=== PATIENT | male | born 2005 | race Caucasian/White ===

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

== ENCOUNTER 2025-02-19 23:45 | Emergency (ER) | payer MEDICAID, SELFPAY ==
--- NOTE | ~2025-02-19 | XR_ITS ---
XR chest 1V portable Ordering provider: Sakshi Soler MD History: 20 years Male with . Anxiety, CHEST PAIN . Comparison: None. FINDINGS: MEDIASTINUM: The cardiac silhouette is not enlarged. LUNGS: No infiltrates, effusions or pneumothorax. OTHER: No free air under the diaphragm. Mild dextroscoliosis. IMPRESSION: No acute cardiopulmonary pathology. Reviewed, dictated and finalized at location A.
[2025-02-19 23:46] VITALS: BP 130/75; PULSE 80; RESP 21; TEMP 36.3; O2SAT 95
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
--- OUTSIDE RECORDS SUMMARY | 2025-02-19 23:46 | XMS_ITS | Referral Summary ---
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
--- NOTE | 2025-02-19 23:47 | ECG_ITS ---
Test Date: 2025-02-19 23:51:17 Measurements Intervals [place] Rate: 102 P: 0 [place]: 0 QRS: 81 QRSD: 96 T: 78 QT: 318 QTc: 414 Interpretive Statements SINUS TACHYCARDIA VOLTAGE CRITERIA FOR LVH [MEETS CRITERIA IN ONE OF: R(aVL), S(V1), R(V5), R(V5/V6)+S(V1)] No previous ECG available for comparison Electronically Signed On 02-20-2025 10:47:23 CDT by Nas Vincent M.D.
[2025-02-20] MEDS: LORazepam (*CRX) 1 MG TABLET PO (00:16)
[2025-02-20 00:17] VITALS: BP 131/76; PULSE 96; RESP 16; O2SAT 97
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
--- NOTE | 2025-02-20 00:36 | ED.CHESTPAIN ---
HPI - Chest Pain General Chief Complaint: Psychiatric Symptoms <Zena Godwin PA-C - Last Filed: 02/20/25 03:01> Stated Complaint: chest pain <Zena Godwin PA-C - Last Filed: 02/20/25 03:01> Time Seen by Provider: 02/20/25 00:15 <Zena Godwin PA-C - Last Filed: 02/20/25 03:01> History of Present Illness HPI narrative: 20-year-old male presents via EMS from home with father and sister at bedside for a panic attack that started 30 minutes prior to arrival. Patient states he was lying in bed when he had acute onset chest pain, shortness of breath, left carpal pedal spasm, tingling in extremities. He states that he is under lot of stress recently and has thoughts of suicide with plans to cut his wrist. States tonight he was lying but he was thinking about cutting his wrists with his knife and hoping he would “bleed out”. He denies HI, hallucinations, drug use. Endorses occasional alcohol use. Denies history of admission to psychiatric hospital or suicide attempt. Patient states for the past several months he has been dealing with an old family member along with “random” people stalking him and cyberbullying him. States these people tell him they are going to come to his house and kill him. He states he has reported this several times to PD and PD reportedly gave these people “warnings , however they continue to harass him. He denies access to firearms but does have a knife set. <Zena Godwin PA-C - Last Filed: 02/20/25 03:01> Related Data Allergies/Adverse Reactions: Allergies Allergy/AdvReac Type Severity Reaction Status Date / Time Penicillins Allergy Severe Swelling Verified 02/19/25 23:46 <Zena Godwin PA-C - Last Filed: 02/20/25 03:01> Review of Systems Review of Systems: All systems reviewed & are unremarkable except as noted in HPI and below <Zena Godwin PA-C - Last Filed: 02/20/25 03:01> [facility] Social History Social History: Social History Substance use type: marijuana <Zena Godwin PA-C - Last Filed: 02/20/25 03:01> Exam Narrative: GENERAL: Well-appearing, well-nourished, and in no acute distress. HEAD: Normocephalic, atraumatic. EYES: EOMI. ENT: Nares clear, no rhinorrhea or epistaxis. Mucous membranes moist. NECK: Supple. CHEST: Clear to auscultation. No respiratory distress. HEART: Regular rate and rhythm. No murmur heard. Normal peripheral pulses. ABDOMEN: Soft, nontender, nondistended, normal active bowel sounds. EXTREMITIES: Of carpopedal spasm SKIN: Warm, dry, no rash. NEURO: No focal deficits. Alert and oriented x3 PSYCH: Anxious appearing, tearful. Not responding to internal stimuli. Admits to SI with plan. Denies HI. <Zena Godwin PA-C - Last Filed: 02/20/25 03:01> Course Course Emergency Course: Patient signed out to me. It was reported that he had initially presented with concern for a panic attack and then while here had expressed suicidal ideation in various forms. Psych/Crisis team/[facility] was evaluating patient. They spent extensive time with the patient and ultimately felt that his expression of suicidal ideation was situational and patient had already addressed that he was going to be going to the police with this concern at later today. He has numerous resources in terms of family support that he identified, both here and available to him. They ultimately felt like he could be discharged with safety planning and the performed this together and he was able to identify plan for what he would do if he experienced these feelings again. They have provided him with resources and plan on following up, calling him tomorrow. Patient otherwise stable for discharge and advised to return to the emergency department as needed. <Karyna Long MD - Last Filed: 02/20/25 08:45> Vital Signs Vital signs: Vital Signs Temperature 97.4 F L 02/19/25 23:46 Pulse Rate 80 02/19/25 23:46 Respiratory Rate 21 H 02/19/25 23:46 Blood Pressure 130/75 02/19/25 23:46 Pulse Oximetry 95 02/19/25 23:46 Oxygen Delivery Room Air 02/19/25 23:46 Temperature 97.4 F L 02/19/25 23:46 Pulse Rate 96 02/20/25 08:00 Respiratory Rate 18 02/20/25 08:00 Blood Pressure 129/85 02/20/25 08:00 Pulse Oximetry 99 02/20/25 08:00 Oxygen Delivery Room Air 02/20/25 01:00 <Zena Godwin PA-C - Last Filed: 02/20/25 03:01> Vital Signs Temperature 97.4 F L 02/19/25 23:46 Pulse Rate 80 02/19/25 23:46 Respiratory Rate 21 H 02/19/25 23:46 Blood Pressure 130/75 02/19/25 23:46 Pulse Oximetry 95 02/19/25 23:46 Oxygen Delivery Room Air 02/19/25 23:46 Temperature 97.4 F L 02/19/25 23:46 Pulse Rate 96 02/20/25 08:00 Respiratory Rate 18 02/20/25 08:00 Blood Pressure 129/85 02/20/25 08:00 Pulse Oximetry 99 02/20/25 08:00 Oxygen Delivery Room Air 02/20/25 01:00 <Sakshi Soler MD - Last Filed: 02/20/25 06:34> Vital Signs Temperature 97.4 F L 02/19/25 23:46 Pulse Rate 80 02/19/25 23:46 Respiratory Rate 21 H 02/19/25 23:46 Blood Pressure 130/75 02/19/25 23:46 Pulse Oximetry 95 02/19/25 23:46 Oxygen Delivery Room Air 02/19/25 23:46 Temperature 97.4 F L 02/19/25 23:46 Pulse Rate 96 02/20/25 08:00 Respiratory Rate 18 02/20/25 08:00 Blood Pressure 129/85 02/20/25 08:00 Pulse Oximetry 99 02/20/25 08:00 Oxygen Delivery Room Air 02/20/25 01:00 <Karyna Long MD - Last Filed: 02/20/25 08:45> MDM - Chest Pain MDM Narrative Medical decision making narrative: 20-year-old male presents to the ED via EMS from home for a panic attack that started 30 minutes prior to arrival. Patient endorsing chest pain, shortness of breath, anxiety, left carpopedal spasm, paresthesias. He is endorsing SI with a plan to cut his wrists and “bleed out”. See HPI for further history. Vitals stable. Patient is anxious appearing and tearful and does have left carpopedal spasm on exam. Will obtain chest x-ray, EKG and psychiatric workup with plans to consult crisis. Pending workup and consult crisis at time of sign-out to Dr. Soler. <Zena Godwin PA-C - Last Filed: 02/20/25 03:01> 20-year-old male presents to the ED via EMS from home for a panic attack that started 30 minutes prior to arrival. Patient endorsing chest pain, shortness of breath, anxiety, left carpopedal spasm, paresthesias. He is endorsing SI with a plan to cut his wrists and “bleed out”. See HPI for further history. Vitals stable. Patient is anxious appearing and tearful and does have left carpopedal spasm on exam. Will obtain chest x-ray, EKG and psychiatric workup with plans to consult crisis. Chest x-ray on my independent evaluation does not show any obvious consolidation, cardiomegaly, pneumothorax. EKG on my independent interpretation shows sinus arrhythmia rate 102, normal VA, QRS, QTC, axis, no ST elevations depressions or signs of acute ischemia or arrhythmia. Patient medically cleared for psychiatric evaluation, [facility] will be here to evaluate patient. Sign-out to coming ER physician pending disposition. <Sakshi Soler MD - Last Filed: 02/20/25 06:34> Lab Data Result diagrams: 02/20/25 03:14 02/20/25 03:14 <Zena Godwin PA-C - Last Filed: 02/20/25 03:01> Labs: Lab Results 02/20/25 02/20/25 02/20/25 Range/Units 03:14 03:15 03:17 WBC 8.1 (4.5-10.0) K/mm3 RBC 5.15 (4.6-6.20) M/mm3 Hgb 14.8 (14.0-18.0) g/dL Hct 44.2 (42.0-52.0) % MCV 85.8 (80-100) fl MCH 28.7 (26-34) pg MCHC 33.5 (32-36) g/dl RDW 12.2 (11.5-14.5) % Plt Count 266 (150-375) k/mm3 MPV 8.7 (7.4-10.4) fl Immature Gran % (Auto) 0.1 (0-0.5) % Neut % (Auto) 52.5 (45.5-73.1) % Lymph % (Auto) 34.2 (18.3-44.2) % [place] % (Auto) 8.4 (2.6-8.5) % Eos % (Auto) 4.3 (0-4.4) % Baso % (Auto) 0.5 (0.2-1.2) % Lymph # (Auto) 2.77 (0.9-3.2) K/mm3 [place] # (Auto) 0.7 H (0.1-0.6) K/mm3 Eos # (Auto) 0.4 H (0-0.3) K/mm3 Baso # (Auto) 0.0 (0.0-0.1) K/mm3 Abs Immat Gran (auto) 0.01 (0.00-0.031) K/mm3 Absolute Neuts (auto) 4.3 (1.3-6.7) K/mm3 Absolute Nucleated RBC 0.000 (0.0-0.012) K/mm3 Nucleated RBC % 0.0 (0.0-0.2) % Sodium 138 (137-145) mmol/L Potassium 3.8 (3.4-5.0) mmol/L Chloride 105 (98-107) mmol/L Carbon Dioxide 23 (22-30) mmol/L Anion Gap 10 (4-12) mmol/L BUN 18 (9-20) mg/dL Creatinine 0.82 (0.7-1.3) mg/dL Estim Creat Clear Calc 113 ml/min Estimated GFR > 60 (59 - ) Glucose 90 (65-110) mg/dL Calcium 9.3 (8.4-10.2) mg/dL Total Bilirubin 0.4 (0.2-1.3) mg/dL AST 25 (17-59) U/L ALT 21 (6-50) U/L Alkaline Phosphatase 71 (38-126) U/L Total Protein 8.0 (6.3-8.2) g/dL Albumin 4.7 (3.5-5.1) g/dL TSH 6.370 H (0.465-4.680) uIU/mL Urine Color Yellow (Yellow) Urine Appearance Clear (Clear) Urine pH 6.0 (5.0-9.0) Ur Specific [employer] Mdl 1.035 (1.001-1.035) Urine Protein Trace (Negative) mg/dL Urine Glucose (UA) Negative (Negative) mg/dL Urine Ketones Trace H (Negative) mg/dL Ur Blood (Man) Negative (Negative) Urine Nitrate Negative (Negative) Urine Bilirubin Negative (Negative) Urine Urobilinogen 1.0 (<2.0) mg/dL Leukocyte Esterase Rfl Negative (Negative) FLO/UL Urine RBC 3-5 H (0-2) /hpf Urine WBC 0-5 (0-3) /hpf Ur Squamous Epith Cells None seen (Few) /hpf Urine Bacteria None seen /hpf Urine Casts 0-2 Salicylates 2.2 (2-20) mg/dL Urine Opiates Screen Negative (Negative) Urine Methadone Screen Negative (Negative) Acetaminophen < 10 L (10-30) ug/mL Ur Barbiturates Screen Negative (Negative) Ur Phencyclidine Scrn Negative (Negative) Ur Amphetamine Screen Negative (Negative) U Benzodiazepines Scrn Negative (Negative) Urine Cocaine Screen Negative (Negative) U Cannabinoids Screen Negative (Negative) Ethyl Alcohol < 10 (<10) mg/dL Influenza A (RT-PCR) Negative (Negative) Influenza B (RT-PCR) Negative (Negative) RSV (RT-PCR) Negative (Negative) SARS-CoV-2 RNA (RT-PCR) Negative (Negative) <Zena Godwin PA-C - Last Filed: 02/20/25 03:01> Lab Results 02/20/25 02/20/25 02/20/25 Range/Units 03:14 03:15 03:17 WBC 8.1 (4.5-10.0) K/mm3 RBC 5.15 (4.6-6.20) M/mm3 Hgb 14.8 (14.0-18.0) g/dL Hct 44.2 (42.0-52.0) % MCV 85.8 (80-100) fl MCH 28.7 (26-34) pg MCHC 33.5 (32-36) g/dl RDW 12.2 (11.5-14.5) % Plt Count 266 (150-375) k/mm3 MPV 8.7 (7.4-10.4) fl Immature Gran % (Auto) 0.1 (0-0.5) % Neut % (Auto) 52.5 (45.5-73.1) % Lymph % (Auto) 34.2 (18.3-44.2) % [place] % (Auto) 8.4 (2.6-8.5) % Eos % (Auto) 4.3 (0-4.4) % Baso % (Auto) 0.5 (0.2-1.2) % Lymph # (Auto) 2.77 (0.9-3.2) K/mm3 [place] # (Auto) 0.7 H (0.1-0.6) K/mm3 Eos # (Auto) 0.4 H (0-0.3) K/mm3 Baso # (Auto) 0.0 (0.0-0.1) K/mm3 Abs Immat Gran (auto) 0.01 (0.00-0.031) K/mm3 Absolute Neuts (auto) 4.3 (1.3-6.7) K/mm3 Absolute Nucleated RBC 0.000 (0.0-0.012) K/mm3 Nucleated RBC % 0.0 (0.0-0.2) % Sodium 138 (137-145) mmol/L Potassium 3.8 (3.4-5.0) mmol/L Chloride 105 (98-107) mmol/L Carbon Dioxide 23 (22-30) mmol/L Anion Gap 10 (4-12) mmol/L BUN 18 (9-20) mg/dL Creatinine 0.82 (0.7-1.3) mg/dL Estim Creat Clear Calc 113 ml/min Estimated GFR > 60 (59 - ) Glucose 90 (65-110) mg/dL Calcium 9.3 (8.4-10.2) mg/dL Total Bilirubin 0.4 (0.2-1.3) mg/dL AST 25 (17-59) U/L ALT 21 (6-50) U/L Alkaline Phosphatase 71 (38-126) U/L Total Protein 8.0 (6.3-8.2) g/dL Albumin 4.7 (3.5-5.1) g/dL TSH 6.370 H (0.465-4.680) uIU/mL Urine Color Yellow (Yellow) Urine Appearance Clear (Clear) Urine pH 6.0 (5.0-9.0) Ur Specific [employer] Mdl 1.035 (1.001-1.035) Urine Protein Trace (Negative) mg/dL Urine Glucose (UA) Negative (Negative) mg/dL Urine Ketones Trace H (Negative) mg/dL Ur Blood (Man) Negative (Negative) Urine Nitrate Negative (Negative) Urine Bilirubin Negative (Negative) Urine Urobilinogen 1.0 (<2.0) mg/dL Leukocyte Esterase Rfl Negative (Negative) FLO/UL Urine RBC 3-5 H (0-2) /hpf Urine WBC 0-5 (0-3) /hpf Ur Squamous Epith Cells None seen (Few) /hpf Urine Bacteria None seen /hpf Urine Casts 0-2 Salicylates 2.2 (2-20) mg/dL Urine Opiates Screen Negative (Negative) Urine Methadone Screen Negative (Negative) Acetaminophen < 10 L (10-30) ug/mL Ur Barbiturates Screen Negative (Negative) Ur Phencyclidine Scrn Negative (Negative) Ur Amphetamine Screen Negative (Negative) U Benzodiazepines Scrn Negative (Negative) Urine Cocaine Screen Negative (Negative) U Cannabinoids Screen Negative (Negative) Ethyl Alcohol < 10 (<10) mg/dL Influenza A (RT-PCR) Negative (Negative) Influenza B (RT-PCR) Negative (Negative) RSV (RT-PCR) Negative (Negative) SARS-CoV-2 RNA (RT-PCR) Negative (Negative) <Sakshi Soler MD - Last Filed: 02/20/25 06:34> Lab Results 02/20/25 02/20/25 02/20/25 Range/Units 03:14 03:15 03:17 WBC 8.1 (4.5-10.0) K/mm3 RBC 5.15 (4.6-6.20) M/mm3 Hgb 14.8 (14.0-18.0) g/dL Hct 44.2 (42.0-52.0) % MCV 85.8 (80-100) fl MCH 28.7 (26-34) pg MCHC 33.5 (32-36) g/dl RDW 12.2 (11.5-14.5) % Plt Count 266 (150-375) k/mm3 MPV 8.7 (7.4-10.4) fl Immature Gran % (Auto) 0.1 (0-0.5) % Neut % (Auto) 52.5 (45.5-73.1) % Lymph % (Auto) 34.2 (18.3-44.2) % [place] % (Auto) 8.4 (2.6-8.5) % Eos % (Auto) 4.3 (0-4.4) % Baso % (Auto) 0.5 (0.2-1.2) % Lymph # (Auto) 2.77 (0.9-3.2) K/mm3 [place] # (Auto) 0.7 H (0.1-0.6) K/mm3 Eos # (Auto) 0.4 H (0-0.3) K/mm3 Baso # (Auto) 0.0 (0.0-0.1) K/mm3 Abs Immat Gran (auto) 0.01 (0.00-0.031) K/mm3 Absolute Neuts (auto) 4.3 (1.3-6.7) K/mm3 Absolute Nucleated RBC 0.000 (0.0-0.012) K/mm3 Nucleated RBC % 0.0 (0.0-0.2) % Sodium 138 (137-145) mmol/L Potassium 3.8 (3.4-5.0) mmol/L Chloride 105 (98-107) mmol/L Carbon Dioxide 23 (22-30) mmol/L Anion Gap 10 (4-12) mmol/L BUN 18 (9-20) mg/dL Creatinine 0.82 (0.7-1.3) mg/dL Estim Creat Clear Calc 113 ml/min Estimated GFR > 60 (59 - ) Glucose 90 (65-110) mg/dL Calcium 9.3 (8.4-10.2) mg/dL Total Bilirubin 0.4 (0.2-1.3) mg/dL AST 25 (17-59) U/L ALT 21 (6-50) U/L Alkaline Phosphatase 71 (38-126) U/L Total Protein 8.0 (6.3-8.2) g/dL Albumin 4.7 (3.5-5.1) g/dL TSH 6.370 H (0.465-4.680) uIU/mL Urine Color Yellow (Yellow) Urine Appearance Clear (Clear) Urine pH 6.0 (5.0-9.0) Ur Specific [employer] Mdl 1.035 (1.001-1.035) Urine Protein Trace (Negative) mg/dL Urine Glucose (UA) Negative (Negative) mg/dL Urine Ketones Trace H (Negative) mg/dL Ur Blood (Man) Negative (Negative) Urine Nitrate Negative (Negative) Urine Bilirubin Negative (Negative) Urine Urobilinogen 1.0 (<2.0) mg/dL Leukocyte Esterase Rfl Negative (Negative) FLO/UL Urine RBC 3-5 H (0-2) /hpf Urine WBC 0-5 (0-3) /hpf Ur Squamous Epith Cells None seen (Few) /hpf Urine Bacteria None seen /hpf Urine Casts 0-2 Salicylates 2.2 (2-20) mg/dL Urine Opiates Screen Negative (Negative) Urine Methadone Screen Negative (Negative) Acetaminophen < 10 L (10-30) ug/mL Ur Barbiturates Screen Negative (Negative) Ur Phencyclidine Scrn Negative (Negative) Ur Amphetamine Screen Negative (Negative) U Benzodiazepines Scrn Negative (Negative) Urine Cocaine Screen Negative (Negative) U Cannabinoids Screen Negative (Negative) Ethyl Alcohol < 10 (<10) mg/dL Influenza A (RT-PCR) Negative (Negative) Influenza B (RT-PCR) Negative (Negative) RSV (RT-PCR) Negative (Negative) SARS-CoV-2 RNA (RT-PCR) Negative (Negative) <Karyna Long MD - Last Filed: 02/20/25 08:45> Discharge Plan Discharge Clinical Impression: Depression with suicidal ideation, Anxiety <Zena Godwin PA-C - Last Filed: 02/20/25 03:01> Patient Disposition: Home <Zena Godwin PA-C - Last Filed: 02/20/25 03:01> Condition: Stable <Zena Godwin PA-C - Last Filed: 02/20/25 03:01> Instructions: Antibiotic Form, Depression (ED), Anxiety (ED), Suicide Prevention (ED) <Zena Godwin PA-C - Last Filed: 02/20/25 03:01> Additional Instructions: Please follow the safety plan provided to you by our crisis team. They will be calling to check in on you and have also provided resources that you are encouraged to use. Follow-up with them as well as your primary care physician. Return to the emergency department with any new, worsening, recurrent symptoms. <Zena Godwin PA-C - Last Filed: 02/20/25 03:01> Patient Language: Burkinan <Zena Godwin PA-C - Last Filed: 02/20/25 03:01> Prescriptions: No Action pregabalin [Lyrica] 50 mg capsule 50 mg PO BID 30 Days Qty: 60 0RF <Zena Godwin PA-C - Last Filed: 02/20/25 03:01> Follow-up/Referrals: Cortez Yip MD [Primary Care Provider] - <Zena Godwin PA-C - Last Filed: 02/20/25 03:01> Stand Alone Forms: Work/School Release IP <Zena Godwin PA-C - Last Filed: 02/20/25 03:01> Time of Disposition: 08:43 <Zena Godwin PA-C - Last Filed: 02/20/25 03:01> 08:43 <Sakshi Soler MD - Last Filed: 02/20/25 06:34> 08:43 <Karyna Long MD - Last Filed: 02/20/25 08:45>
--- OUTSIDE RECORDS SUMMARY | 2025-02-20 00:44 | XMS_ITS | Referral Summary ---
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
--- OUTSIDE RECORDS SUMMARY | 2025-02-20 00:44 | XMS_ITS | Clinical Summary ---
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
[2025-02-20 03:23] LABS: Basophils Percent Auto 0.5 % (0.2-1.2); Eosinophils Absolute Auto 0.4 K/mm3 (0-0.3); Eosinophils Percent Auto 4.3 % (0-4.4); Hematocrit 44.2 % (42.0-52.0); Hemoglobin 14.8 g/dL (14.0-18.0); Immature Granulocyte Absolute 0.01 K/mm3 (0.00-0.031); Immature Granulocyte Percent A 0.1 % (0-0.5); Lymphocytes Absolute Auto 2.77 K/mm3 (0.9-3.2); Lymphocytes Percent Auto 34.2 % (18.3-44.2); Mean Corpuscular HGB Conc 33.5 g/dl (32-36); Mean Corpuscular Hemoglobin 28.7 pg (26-34); Mean Corpuscular Volume 85.8 fl (80-100); Mean Platelet Volume 8.7 fl (7.4-10.4); Monocytes Absolute Auto 0.7 K/mm3 (0.1-0.6); Monocytes Percent Auto 8.4 % (2.6-8.5); Neutrophils Absolute Auto 4.3 K/mm3 (1.3-6.7); Neutrophils Percent Auto 52.5 % (45.5-73.1); Platelet Count Result 266 k/mm3 (150-375); Red Blood Count 5.15 M/mm3 (4.6-6.20); Red Cell Distribution Width 12.2 % (11.5-14.5); White Blood Count 8.1 K/mm3 (4.5-10.0)
[2025-02-20 03:32] LABS: Add Urine Microscopic? YES; Appearance Urine Clear (Clear); Bacteria Urine None Seen /hpf; Bilirubin Urine Negative (Negative); Blood Urine Negative (Negative); Color Urine Yellow (Yellow); Glucose Urine UA Negative (Negative); Ketones Urine Trace mg/dL (Negative); Leukocyte Esterase Ur Negative LEU/UL (Negative); Nitrate Urine Negative (Negative); Non Pathogenic Casts 0-2; Protein Urine Trace mg/dL (Negative); Specific Grav Ur 1.035 (1.001-1.035); Squamous Epithelial Cell Urine None Seen /hpf (Few); WBC Urine 0-5 /hpf (0-3)
[2025-02-20 03:37] LABS: Acetaminophen < 10 ug/mL (10-30); Ethanol < 10 mg/dL (<10); Salicylate 2.2 mg/dL (2-20)
[2025-02-20 03:38] LABS: Alanine Aminotransferase 21 U/L (6-50); Albumin Level 4.7 g/dL (3.5-5.1); Alkaline Phosphatase 71 U/L (38-126); Anion Gap 10 mmol/L (4-12); Aspartate Amino Transferase 25 U/L (17-59); Bilirubin,Total 0.4 mg/dL (0.2-1.3); Blood Urea Nitrogen 18 mg/dL (9-20); Calcium 9.3 mg/dL (8.4-10.2); Carbon Dioxide 23 mmol/L (22-30); Chloride 105 mmol/L (98-107); Estimated CRCL calculation 113 ml/min; Estimated Glomerular Filt Rate > 60; Glucose 90 mg/dL (65-110); Potassium 3.8 mmol/L (3.4-5.0); Sodium 138 mmol/L (137-145)
[2025-02-20 03:42] LABS: Amphetamine Screen Urine Negative (Negative); Barbiturate Screen Urine Negative (Negative); Benzodiazepines Screen Urine Negative (Negative); Cannabinoid Screen Urine Negative (Negative); Cocaine Screen Urine Negative (Negative); Methadone Screen Urine Negative (Negative); Opiate Screen Urine Negative (Negative); Phencyclidine Screen Urine Negative (Negative)
[2025-02-20 04:00] LABS: Influenza A QL RT-PCR Negative (Negative); Influenza B QL RT-PCR Negative (Negative); RSV RNA, RT-PCR Negative (Negative); SARS-CoV-2 RNA PCR Negative (Negative)
--- NOTE | 2025-02-20 04:58 | PC.NURSE ---
ok to call nataliya - pt medically clear per edp bonnie
--- NOTE | 2025-02-20 05:05 | PC.NURSE ---
shruthi at [facility] - will send someone out.
--- NOTE | 2025-02-20 06:15 | PC.NURSE ---
father and sister updated about nataliya eta. Both verbalized that pt (whom is still asleep) has not made any additional suicidal comments/homicidal comments at this time.
[2025-02-20 08:00] VITALS: BP 129/85; PULSE 96; RESP 18; O2SAT 99
== END 2025-02-20 08:48 | disposition home or self-care (01) ==
PROVIDERS: Emergency Medicine; Physician Assistant; Emergency Provider Student in an Organized Health Care Education/Training Program; PCP Emergency Medicine
DX: R45.851 Suicidal ideations (principal); F41.8 Other specified anxiety disorders; Z11.59 Encounter for screening for other viral diseases
CPT/HCPCS: 36415; 71045; 80053; 80143; 80179; 80307; 81001; 82077; 84443; 85025; 87637; 93005; 99284; A9270

== ENCOUNTER 2025-07-06 18:46 | Emergency (ER) | payer OTHER, SELFPAY ==
--- OUTSIDE RECORDS SUMMARY | 2025-07-06 18:50 | XMS_ITS | Clinical Summary ---
Author Organization [facility] Address [facility] [place] [address] Care Team Providers Care Rn Clinical Resource Name Role Phone Cortez Yip MD Primary Care Provider [phone] Encounters Date Type Department Care Team Description 05/25/2025 Telephone [facility] [address] [address] Gaston Arceo MD Referral from Last 3 Months Social History Tobacco Use Types Packs/Day Years Used Date Smoking Tobacco: Never Assessed Sex and Gender Information Value Date Recorded Sex Assigned at Not on file Legal Sex Male 6:23 PM CDT Gender Identity Not on file Sexual Orientation Not on file Plan of Treatment Health Maintenance Due Date Last Done Comments Annual Physical 02/04/2008 HPV Vaccines (1 - Male 3-dos e series) 02/04/2020 Meningococcal B Vaccine (1 o f 2 - Standard) 2021 Hepatitis C 2023 DTaP, Tdap and Td Vaccines ( 1 - Tdap) 02/04/2024 Hepatitis B Vaccines (1 of 3 - 19+ 3-dose series) 02/04/2024 COVID-19 Vaccine ( - 2023-2 5 season) 2025 Meningococcal Vaccine Aged Out No luma emili eligible based on patient's age to complete this topic Pneumococcal Vaccine: Pediat rics (0 to 5 Years) and At-Risk Patients (6 to 49 Years) Aged Out No longer eligible b ased on patient's age to complete this topic RSV Immunizations Under 20 Months Aged Out No longer eligible based on patient's age to complete this topic Care Teams Rn Clinical Resource Relationship Specialty Start Date End Date Cortez Yip MD [address] [address] PCP - General FAMILY PRACTICE 05/09/25
--- NOTE | 2025-07-06 18:57 | ED_ITS ---
HPI - Skin/Abscess/Foreign Bdy General Chief complaint: Skin/Abscess/Foreign Body Stated complaint: Skin Problem Time Seen by Provider: 07/06/25 18:55 Source: patient, RN notes reviewed and old records reviewed Mode of arrival: ambulatory Limitations: no limitations History of Present Illness HPI narrative: 20-year-old male presents to the [facility] with a red painful itchy lesion to the right lateral waist area. States that occurred yesterday. Cleaned it with window shade ring coverer. Put a Band-Aid on it. Treatments prior to arrival: bandages Related Data Allergies Allergy/AdvReac Type Severity Reaction Status Date / Time Penicillins Allergy Severe Swelling Verified 07/06/25 18:48 Review of Systems 2 Review of Systems: All systems reviewed & are unremarkable except as noted in HPI and below Constitutional: Constitutional: Reports no additional constitutional complaints ENT: Reports system reviewed and no additional complaints, except as documented Cardiovascular: Cardiovascular: Reports no additional cardiovascular complaints, Denies chest pain and Denies dyspnea Respiratory: Respiratory: Reports no additional respiratory complaints, Denies chest congestion, Denies cough and Denies dyspnea Musculoskeletal: Musculoskeletal: Reports no additional musculoskeletal complaints Integumentary/Breasts: Skin/Breast: Reports as per HPI PMFSH Social History Social History Substance use type: marijuana Comments At the time of my signature, I reviewed and agree with the nursing past medical, surgical, social, and family history. There is no relevant family history pertinent to the patient complaint. Exam 2 Const: General: cooperative, healthy appearing, comfortable, no acute distress, well developed, alert and well nourished Nutritional Appearance: w ell nourished Orientation/consciousness: patient oriented x3 Limitations: no limitations HENMT: Head: normal to inspection Eyes: General: appearance normal, both eyes and all related structures A lignment and Position: alignment normal Neck: Neck: normal visual inspection, full ROM, no lymphadenopathy and no meningeal signs Chest: Chest palpation & inspection: normal inspection of the chest Resp: Effort & Inspection: normal respiratory effort and able to speak in complete sentences Cardio: Rate: regular rate Skin: General skin exam: normal color and no rashes or lesions noted Full body images: 1. Red, scaly, dry circular area, raised edges. No fluctuance. Neuro: General: patient oriented x3, gait normal, moves all extremities and no meningeal signs Cognition (Neuro): normal cognition Speech: normal speech Gait exam (Neuro): Normal gait present Extrem: General: normal to inspection, full ROM, capillary refill normal and normal gait Psych: Appearance: grossly normal and well kempt Mental Status: mental status grossly normal Speech and movement: Normal speech and movement present and Clear speech present Affect: normal affect Attitude: cooperative Course Course Level of Care: Express Care Visit Vital Signs Vital signs: Vital Signs Temperature 98.0 F 07/06/25 18:59 Pulse Rate 93 07/06/25 18:59 Respiratory Rate 18 07/06/25 18:59 Blood Pressure 129/73 07/06/25 18:59 Pulse Oximetry 98 07/06/25 18:59 Oxygen Delivery Room Air 07/06/25 18:59 Temperature 98.0 F 07/06/25 18:59 Pulse Rate 93 07/06/25 18:59 Respiratory Rate 18 07/06/25 18:59 Blood Pressure 129/73 07/06/25 18:59 Pulse Oximetry 98 07/06/25 18:59 Oxygen Delivery Room Air 07/06/25 18:59 Reviewed MDM - Skin/Abscess/Foreign Bdy MDM Narrative Medical decision making narrative: Patient with a red circular area to the right waist area, consistent with ringworm, attempted to explained that ring warm is not an actual were arm, that it is a fungus that we will prescribe an antifungal to the patient. Patient in no acute distress, sitting comfortably in exam room with vitals are stable. Patient is appropriate for outpatient treatment with an antifungal cream. Discharge instructions reviewed with patient, as well as provided in writing per nursing staff. The instructions also include specific and strict return/GO TO THE ER as well as f/u information. All questions have been answered, and the patient deny any further questions with discharge and discharge plan. Some parts of this dictation were generated by voice recognition software and may contain typographical and/or grammatical inaccuracies. Differential Diagnosis Differential diagnosis: Likely abscess of skin or subcutaneous tissue, urticaria, herpes zoster, allergic reaction to drug, cellulitis, eczema and other (Yeast) Critical Care Time Critical Care Time Critical Care Time: No Discharge Plan Discharge Clinical Impression: Ringworm of body Patient Disposition: Home Condition: Stable Instructions: Antibiotic Form, Skin Yeast Infection (ED) Additional Instructions: Keep area clean and dry. Wash with warm soapy water, pat dry and apply the antifungal cream. Ringworm can take 4-6 weeks to heal. Follow-up with primary care provider this week Patient Language: Martiniquais Prescriptions: New clotrimazole 1 % cream 1 applic topical BID 28 Days Qty: 45 0RF No Action pregabalin [Lyrica] 50 mg capsule 50 mg PO BID 30 Days Qty: 60 0RF Follow-up/Referrals: Cortez Yip MD [Primary Care Provider, Family Practice] Stand Alone Forms: Work/School Release IP Time of Disposition: 18:59
[2025-07-06 18:59] VITALS: BP 129/73; PULSE 93; RESP 18; TEMP 36.7; O2SAT 98
== END 2025-07-06 19:11 | disposition home or self-care (01) ==
PROVIDERS: Emergency Provider Nurse Practitioner; PCP Emergency Medicine
DX: B35.4 Tinea corporis (principal)
CPT/HCPCS: 99213; G0463